=== PATIENT | female | born 1975 ===

== ENCOUNTER 2021-12-16 05:49 | Day surgery (SDC) | payer OTHER ==
[~2021-12-16 05:49] MED LIST: D3 + K2 DOTS 11 EACH PO
[2021-12-16] MEDS ORDERED: PERCOCET 5-3251 EACH PO (09:03)
== END 2021-12-16 13:18 | disposition home or self-care (01) ==
LOC: CIR.AMB 05:49
PROVIDERS: ATTEND Surgery
DX: D35.1 Benign neoplasm of parathyroid gland (principal); Z91.030 Bee allergy status; Z20.822 Contact with and (suspected) exposure to COVID-19